=== PATIENT | female | born 1955 | race Caucasian/White ===

== ENCOUNTER 2017-05-02 08:55 | Day surgery (SDC) | payer MEDICARE, BC ==
[2017-05-02] VITALS (7 sets, daily range): BP systolic 124–193; BP diastolic 62–102; PULSE 67–89; RESP 16–20; TEMP 97.4–98.3; O2SAT 95–98
[~2017-05-02] VITALS: Ht 188 cm; Wt 102.3 kg
[2017-05-02] MEDS ORDERED: ACYC400T PO (09:11)
[2017-05-02] MEDS ORDERED: CYTO5TAB3 PO (09:11)
[2017-05-02] MEDS ORDERED: LEVO100T5 PO (09:11)
[2017-05-02] MEDS ORDERED: LIDOCAINE 1%/EPINEPHrine 1:100,000 SOLN 20 ML VIAL ONE (10:24)
[2017-05-02] MEDS ORDERED: MIDAZOLAM HCL 5 MG/5 ML VIAL ONE (10:52)
[2017-05-02] MEDS ORDERED: fentaNYL CITRATE 250 MCG/5 ML AMP ONE (10:52)
--- NOTE | 2017-05-02 13:20 | RADRPT ---
EXAM DATE/TIME: 05/02/2017 11:12 [facility] COMPARISON: No previous studies available for comparison. INDICATIONS : Omental thickening. SEDATION TIME: 40 minutes BIOPSY SITE: abdomen MEDICATION(S): 1.) 3 mg midazolam (Versed) IV 2.) 150 mcg fentanyl (Sublimaze) IV DEVICE(S): 1.) 18 gauge BioPince needle 10cm MEDICAL HISTORY : Omental thickening, bilateral ovarian masses SURGICAL HISTORY : Tubal ligation. Cholecystectomy. ENCOUNTER: Initial ACUITY: 1 day PAIN SCORE: 0/10 LOCATION: anterior A total of one core specimen(s) were obtained and sent to the laboratory for pathologic evaluation. PROCEDURE: 1. CT guided abdomen biopsy. 2. Conscious sedation with continuous EKG and oximetry monitoring. Prior to the procedure informed consent was obtained. Any appropriate prior imaging studies were rev iewed. Using automated exposure control and adjustment of the mA and/or kV according to patient size, radiat ion dose was kept as low as reasonably achievable to obtain optimal diagnostic quality images. The site was prepped in a sterile fashion. Full sterile technique was used, including cap, mask, jamar rile gloves and gown and a large sterile sheet. Hand hygiene and 2% chlorhexidine and/or betadine/al cohol prep was utilized per protocol for cutaneous antisepsis. The skin and subcutaneous tissues wer e infiltrated with local anesthetic solution. With CT guidance the previously identified target was localized. Biopsy was performed using the presc ribed needle as above. Adequate hemostasis was obtained with compression at the puncture site. Follow-up CT scan reveals no hemorrhage. The patient tolerated the procedure well and there were no complications. The patient was returned to the Radiology Outpatient Unit in stable condition. 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 Josué Longoria MD FACR on May 02, 2017 at 13:17 Board Certified Radiologist. This report was verified electronically.
== END 2017-05-02 15:00 | disposition home or self-care (01) ==
LOC: HRAD 08:55 → HRIP 08:59 → HRAD 15:00
PROVIDERS: ATTEND Obstetrics & Gynecology Gynecologic Oncology
DX: C48.1 Malignant neoplasm of specified parts of peritoneum (principal)
CPT/HCPCS: 49180; 77012; 88305; 88333; 88341; 88342; 99152; 99153; J2250; J3010

== ENCOUNTER 2017-05-11 06:20 | Day surgery (SDC) | payer MEDICARE, BC ==
[~2017-05-11] VITALS: Ht 188 cm; Wt 104.5 kg
[2017-05-11] VITALS (7 sets, daily range): BP systolic 129–169; BP diastolic 73–101; PULSE 77–96; RESP 16–20; TEMP 97.6–97.7; O2SAT 93–97
[~2017-05-11 06:20] MED LIST: ACYC400T PO; CYTO5TAB3 PO; LEVO100T5 PO
[2017-05-11] MEDS ORDERED: ceFAZolin 2 GM PREMIX 50 ML - implanted port/tunneled catheter insertion IV SCH (07:30)
[2017-05-11] MEDS ORDERED: VANCOMYCIN 1000 MG/NS 250 ML - implanted port/tunneled catheter IV SCH ×2 (07:30)
[2017-05-11] MEDS ORDERED: CHLORHEXIDINE GLUCONATE 2 % 1 PACK (2 CLOTHS) TOPICAL SCH (07:30)
[2017-05-11] MEDS ORDERED: SODIUM CHLORIDE 0.9% 1000 ML IV SCH (07:30)
[2017-05-11] MEDS ORDERED: POVIDONE IODINE 5% (ANTISEPSIS KIT) 4 APPLICATIONS EACH NARE SCH (07:30)
[2017-05-11] MEDS ORDERED: MIDAZOLAM HCL 5 MG/5 ML VIAL ONE (07:50)
[2017-05-11] MEDS ORDERED: fentaNYL CITRATE 250 MCG/5 ML AMP ONE (07:51)
[2017-05-11] MEDS ORDERED: LIDOCAINE 1%/EPINEPHrine 1:100,000 SOLN 20 ML VIAL ONE (07:55)
[2017-05-11] MEDS ORDERED: MIDAZOLAM HCL 2 MG/2 ML VIAL ONE (09:10)
[2017-05-11] MEDS ORDERED: SODIUM CHLORIDE 0.9% FLUSH 10 ML FLUSH IVF PRN (09:30)
--- NOTE | 2017-05-11 09:30 | PD.RAD ---
Post Procedure Progress Note Pre Procedure Diagnosis: (1) Ovarian cancer Post Procedure Diagnosis: (1) Ovarian cancer Procedure Date: May 11, 2017 Supervising Radiologist: Bala Adkins Proceduralist/Assist: RT Susan(R)() Anesthesia: Local, Conscious Sedation Plan of Activity Patient to Unit: [facility] Patient Condition: Good Additional Comments: tip at [facility] See PACS Report for procedural detail/treatment Bala Adkins MD May 11, 2017 09:30
--- NOTE | 2017-05-11 12:49 | RADRPT ---
EXAM DATE/TIME: 05/11/2017 07:46 [facility] COMPARISON: No previous studies available for comparison. INDICATIONS : Patient with history of bilateral ovarian masses in need of port placement. MEDICAL HISTORY : 1.Bilateral ovarian masses 2.Glaucoma in 2015 3.Thyroid disease in 2010 SURGICAL HISTORY : 1.Cholecystectomy 2.Right shoulder arthroscopy 3.Right knee surgery 4Tubal ligation ENCOUNTER: Initial ACUITY: 2 weeks PAIN SCORE: 0/10 FLUORO TIME: 0.4 minutes IMAGE SERIES: 0 SEDATION TIME: 75 minutes ACCESS: Right internal jugular vein SEDATION: 1.) 6 mg midazolam (Versed) IV 2.) 300 mcg fentanyl (Sublimaze) IV Prophylactic antibiotics were administered with appropriate pre-procedure timing. Vancomycin within 2 hours of procedure, Ancef (or alternative) within 1 hour of procedure. DEVICE: 1. 8 Tamazight single lumen Angiodynamics power port PROCEDURE : 1. Continuous pulse oximetry and EKG monitoring. 2. Intravenous conscious sedation. 3. Ultrasound guidance for venous access. 4. Fluoroscopic guided implantable central venous port placement. The patient was placed supine. The neck was prepped in sterile fashion. Full sterile technique was u sed, including cap, mask, sterile gloves and gown, and a large sterile sheet. Hand hygiene and 2% ch lorhexidine Betadine was utilized per protocol for cutaneous antisepsis with appropriate dry time for site. The skin and subcutaneous tissues were infiltrated with local anesthetic solution. Under direct ultrasound guidance, central venous access was accomplished in the targeted vessel. The ultrasound images depicting access guidance were stored and saved to PACS for permanent record. A s ubcutaneous pocket was created using blunt dissection. The port was introduced to the pocket. The c atheter tubing was fed through a subcutaneous tunnel to the venotomy site. The catheter tubing was c ut to a suitable length and then was introduced through a valved Peel-Away sheath and positioned with catheter tubing tip at the cavo-atrial junction level. The pocket incision was closed with subcutic ular Vicryl suture. Steri-Strips were applied. The port was flushed and locked with heparin solutio n per protocol. Sterile dressing was applied to the site. The patient tolerated the procedure well. Conscious sedation was performed with the prescribed dosages and duration as above in the presence of an independent trained radiology nurse to assist in the monitoring of the patient. EKG and oximetry remained stable throughout the procedure. The patient tolerated the procedure well and there were no complications. The patient was sent to post anesthesia recovery in stable condition. CONCLUSION: Uncomplicated ultrasound and fluoroscopic guided implanted central venous port catheter placement as described in detail above. An 8 Tamazight Power port was placed. Bala Adkins MD on May 11, 2017 at 12:46 Board Certified Radiologist. This report was verified electronically.
== END 2017-05-11 11:55 | disposition home or self-care (01) ==
LOC: HROP 06:20 → HRIP 06:31 → HROP 11:55
PROVIDERS: ATTEND Obstetrics & Gynecology Gynecologic Oncology
DX: Z45.2 Encounter for adjustment and management of vascular access device (principal); C56.9 Malignant neoplasm of unspecified ovary
CPT/HCPCS: 36561; 76937; 77001; 99152; 99153; C1788; J0690; J1642; J2250; J3010; J3370; J7030; J7050

== ENCOUNTER → 2017-08-16 | Outpatient (CLI) | payer MEDICARE, BC ==
[~2017-08-16] MED LIST changes: +ULTR50TA5 PO
--- NOTE | 2017-08-16 11:12 | RADRPT ---
EXAM DATE/TIME: 08/16/2017 10:55 [facility] COMPARISON: No previous studies available for comparison. INDICATIONS : Evaluate for pneumonia, pneumothorax or cumnunicable disease. pre surgery Hysterectomy 08/27/2017 MEDICAL HISTORY : None. SURGICAL HISTORY : Infusaport ENCOUNTER: Initial ACUITY: 1 day PAIN SCORE: 0/10 LOCATION: chest FINDINGS: PA and lateral views of the chest demonstrate the lungs to be symmetrically aerated without evidence of mass, infiltrate or effusion. Right-sided [id number]-[id number] catheter with tip in the SVC. The cardiom ediastinal contours are unremarkable. Osseous structures are intact. CONCLUSION: No acute disease. Kristofer Pisano MD on August 16, 2017 at 11:10 Board Certified Radiologist. This report was verified electronically.
== END ==
LOC: CPRE 10:01
PROVIDERS: ATTEND Obstetrics & Gynecology Gynecologic Oncology
DX: Z01.811 Encounter for preprocedural respiratory examination (principal); C56.9 Malignant neoplasm of unspecified ovary
CPT/HCPCS: 71020

== ENCOUNTER 2017-08-27 05:31 | Inpatient (IN) | payer MEDICARE, BC ==
[~2017-08-27] VITALS: Ht 188 cm; Wt 103.7 kg
[~2017-08-27 05:31] MED LIST changes: -ULTR50TA5 PO
[2017-08-27] MEDS ORDERED: METOPROLOL TARTRATE 25 MG TAB PO PRN (06:00)
[2017-08-27] MEDS ORDERED: HEPARIN SODIUM - SQ 10,000 UNITS/ML VIAL SQ PRN (06:00)
[2017-08-27] MEDS ORDERED: CHLORHEXIDINE GLUCONATE 2 % 1 PACK (2 CLOTHS) TOPICAL PRN (06:00)
[2017-08-27] MEDS ORDERED: LACTATED RINGER'S 1000 ML IV PRN (06:00)
[2017-08-27] MEDS ORDERED: SODIUM CHLORID 0.9% 500 ML IV PRN (06:00)
[2017-08-27] MEDS ORDERED: SODIUM CHLORIDE FLUSH PRN IV FLUSH (06:00)
[2017-08-27] MEDS ORDERED: INSULIN HUMAN REGULAR 1,000 UNITS/10 ML VIAL SQ PRN (06:00)
[2017-08-27] MEDS ORDERED: POVIDONE IODINE 5% (ANTISEPSIS KIT) 4 APPLICATIONS EACH NARE PRN (06:00)
[2017-08-27] MEDS ORDERED: ACETAMINOPHEN 1000 MG/100 ML 100 ML IV ONE (06:39)
[2017-08-27] MEDS ORDERED: ARTIFICIAL TEARS OPTH OINT 3.5 APPLIC/3.5 GM TUBO ONE (06:40)
[2017-08-27] MEDS ORDERED: SUGAMMADEX SODIUM 200 MG/2 ML VIAL IV PUSH ONE ×2 (06:40)
[2017-08-27] MEDS: ceFAZolin 2 GM PREMIX 50 ML IV SCH (07:09)
[2017-08-27] MEDS ORDERED: SODIUM CHLORIDE FLUSH BID IV FLUSH SCH (09:00)
[2017-08-27] MEDS ORDERED: ceFAZolin INJ 1,000 MG VIAL IV ONE (11:35)
[2017-08-27] MEDS ORDERED: LORazepam 0.5 MG TAB PO PRN (12:00)
[2017-08-27] MEDS ORDERED: SODIUM CHLORIDE 0.9% FLUSH 10 ML FLUSH IV FLUSH PRN (12:00)
[2017-08-27] MEDS: D5-1/2 NS + KCL 20 MEQ INJ 1,000 ML IV SCH ×2 (12:00→22:26)
[2017-08-27] MEDS ORDERED: ONDANSETRON HCL 4 MG/2 ML VIAL IVP PRN (12:00)
[2017-08-27] MEDS ORDERED: METHYLENE BLUE 10 MG/ML VIAL IV ONE (13:00)
[2017-08-27] MEDS: LIOTHYRONINE SODIUM 5 MCG TAB PO SCH ×2 (14:00→18:00)
[2017-08-27] MEDS ORDERED: *morphine SULFATE 8 MG/ML PERIprocedure ONLY ONE (14:05)
--- NOTE | 2017-08-27 15:31 | PD.ONC.PN ---
Subjective Subjective Remarks post op note: Pt is resting, seen in PACU awaiting bed no complaints pain controlled denies n/v eating ice chips Objective Data Date Time Temp Pulse Resp B/P (MAP) Pulse Ox O2 Delivery O2 Flow Rate FiO2 08/27/17 15:00 97.7 93 16 134/72 (92) 97 Nasal Cannula 2 08/27/17 14:00 79 16 123/71 (88) 96 Nasal Cannula 2 08/27/17 13:00 80 16 124/64 (84) 96 Nasal Cannula 2 08/27/17 12:45 93 16 125/65 (85) 95 08/27/17 12:30 67 16 114/56 (75) 96 Simple Mask 6 08/27/17 12:15 73 16 113/56 (75) 95 Simple Mask 6 08/27/17 12:09 97.7 84 20 126/63 (84) 94 Simple Mask 6 08/27/17 06:17 97.1 87 20 163/99 (120) 97 08/27/17 08/27/17 08/27/17 06:59 14:59 22:59 Intake Total 1400 ml Output Total 400 ml Balance 1000 ml Administered Medications Medications (Trade) Dose Ordered Sig/Kristen Route PRN Reason Start Time Stop Time Status Last Admin Dose Admin Lactated Ringer's 1,000 ml @ 30 mls/hr Q24H PRN IV SEE LABEL COMMENTS 08/27/17 06:00 08/30/17 05:59 08/27/17 06:15 Povidone Iodine (Betadine 5% Antisepsis Kit) 1 applic [employer] PRN EACH NARE SEE LABEL COMMENTS 08/27/17 06:00 08/30/17 05:59 08/27/17 06:47 Chlorhexidine Gluconate (Chlorhexidine 2% Cloth) 3 pack [employer] PRN TOPICAL SEE LABEL COMMENTS 08/27/17 06:00 08/30/17 05:59 08/27/17 06:00 Heparin Sodium (Porcine) (Heparin Inj) 5,000 units [employer] PRN SQ GIVE PRE-OP [employer]UCER TO OR 08/27/17 06:00 08/28/17 05:59 08/27/17 06:37 Cefazolin Sodium/ Dextrose 50 ml @ 100 mls/hr [employer] IV 08/27/17 06:00 08/30/17 05:59 08/27/17 07:09 Potassium Chloride/Dextrose/ Sod Cl 1,000 ml @ 100 mls/hr Q10H IV 08/27/17 12:00 08/27/17 12:00 Objective Remarks GENERAL: Well-nourished, well-developed patient. SKIN: Warm and dry. HEAD: Normocephalic. EYES: No scleral icterus. No injection or drainage. NECK: Supple CARDIOVASCULAR: Regular rate and rhythm without murmurs. RESPIRATORY: Breath sounds equal bilaterally. No accessory muscle use. GASTROINTESTINAL: Abdomen soft, non-tender, nondistended. SS are c/d/i MUSCULOSKELETAL: Adequate muscle tone. NEUROLOGICAL: No obvious focal deficit. Awake, alert, and oriented x3. PSYCHIATRIC: Appropriate mood and affect; insight and judgment normal. Assessment/Plan Problem List: (1) Ovarian cancer ICD Codes: C56.9 - Malignant neoplasm of unspecified ovary Status: Acute Plan: s/p RA lap hyst with BSO and omentectomy post op orders in chart ADAT can get OOB to chair pain meds per EMR anticipate d/c cline in morning and discharge home in next 24 hours Que Silva Aug 27, 2017 15:31
[2017-08-27] MEDS: traMADol HCL 50 MG TAB PO PRN (16:21)
[2017-08-27 16:24] VITALS: BP 147/82; PULSE 95; RESP 21; O2SAT 94
[2017-08-27] MEDS: KETOROLAC TROMETHAMINE 30 MG/ML (IVP) VIAL IVP PRN (19:28)
[2017-08-27 20:02] VITALS: BP 147/88; PULSE 85; RESP 16; TEMP 97.9; O2SAT 96
[2017-08-27] MEDS ORDERED: SODIUM CHLORIDE 0.9% FLUSH 10 ML FLUSH IV FLUSH SCH (21:00)
[2017-08-28] MEDS: KETOROLAC TROMETHAMINE 30 MG/ML (IVP) VIAL IVP PRN (00:07)
[2017-08-28] MEDS: traMADol HCL 50 MG TAB PO PRN (00:08)
[2017-08-28 00:16] VITALS: BP 148/86; PULSE 83; RESP 16; TEMP 98.4; O2SAT 97
[2017-08-28 04:35] VITALS: O2SAT 96
[2017-08-28 05:29] VITALS: BP 144/88; PULSE 73; RESP 16; TEMP 98.5; O2SAT 95
[2017-08-28] MEDS ORDERED: LEVOTHYROXINE SODIUM 100 MCG TAB PO SCH (06:00)
[2017-08-28 07:03] LABS: AUTOMATED NEUTROPHIL # 5.2 TH/MM3 (1.8-7.7); BASOPHIL % 0.3 % (0.0-2.0); EOSINOPHIL % 0.3 % (0.0-4.0); HEMATOCRIT 28.3 % (35.0-46.0); HEMO FLAGS DIFF FINAL; LYMPH % 19.8 % (9.0-44.0); LYMPHOCYTE # 1.5 TH/MM3 (1.0-4.8); MEAN CELL VOLUME 99.5 FL (80.0-100.0); MEAN CORPUSCULAR HEMOGLOBIN 34.8 PG (27.0-34.0); NEUT % 69.6 % (16.0-70.0); PLATELET COUNT 133 TH/MM3 (150-450); RED BLOOD COUNT 2.84 MIL/MM3 (4.00-5.30); RED CELL DISTRIBUTION WIDTH 15.9 % (11.6-17.2); WHITE BLOOD COUNT 7.5 TH/MM3 (4.0-11.0)
[2017-08-28] MEDS ORDERED: ULTR50TA5 PO (07:21)
[2017-08-28 07:33] LABS: BICARBONATE 26.9 MEQ/L (21.0-32.0); POTASSIUM 3.3 MEQ/L (3.5-5.1)
[2017-08-28 07:46] LABS: CALCIUM-PROTEIN CORRECTED 8.1 MG/DL (8.5-10.1)
[2017-08-28 08:00] VITALS: BP 160/88; PULSE 77; RESP 18; TEMP 98.2; O2SAT 94
[2017-08-28] MEDS: LIOTHYRONINE SODIUM 5 MCG TAB PO SCH (10:09)
--- NOTE | 2017-08-28 10:34 | MP ---
cc: CANDIE DEWITT M.D. ALLEY JESSICA MD, DAVID K. M.D. DATE OF SURGERY 08/27/2017 PREOPERATIVE DIAGNOSES 1. Stage III-C ovarian cancer. 2. Status post neoadjuvant Taxol and carboplatin chemotherapy. POSTOPERATIVE DIAGNOSES 1. Stage III-C ovarian cancer. 2. Status post neoadjuvant Taxol and carboplatin chemotherapy. 3. Extensive intraperitoneal adhesions. 4. Moderate right hydronephrosis. PROCEDURE Robotic-assisted laparoscopic hysterectomy, bilateral salpingo-oophorectomy and right ureterolysis, omentectomy, extensive lysis of adhesions. SURGEON Alley Jessica MD NURSE INFORMATICS EDUCATOR [place] special event assistant. ANESTHESIA General endotracheal anesthesia. ESTIMATED BLOOD LOSS 300 cc. IV FLUIDS 1400 cc. URINE OUTPUT 100 cc. HISTORY This is a 61-year-old female with biopsy-proven papillary serous adenocarcinoma with disease in the abdomen, bilateral ovarian masses, an elevated CA-125 greater than 2000. These findings system Stage III-C ovarian cancer. She was counseled, underwent neoadjuvant Taxol, carboplatin chemotherapy x 4 cycles with a rapid and normalization of her CA-125, marked clinical improvement and significant improvement on clinical exam. She has been counseled regarding the potential value of surgical intervention. She favors minimal evasive techniques if possible and she presents now. She is seen again in the preop holding area where these findings are again reviewed and the plan of care is discussed. Questions were asked and answered. She expressed good understanding. FINDINGS In the peritoneal cavity. There had been a tremendous response to chemotherapy. The omentum had what looked to be like small foci of tumor but overall looked relatively normal. There were adhesions, minimal in the abdomen, extensive in the pelvis that were consistent with areas of prior tumor that had responded to chemotherapy. Both ovaries were enlarged and fixed densely, partially retroperitonealized against the pelvic sidewall with some obliteration of the cul-de-sac. There was moderate dilation of the right ureter as the overlying ovary and tumor caused compression to the distal ureter. The uterus grossly appeared normal. Amazingly there were actually no visible peritoneal implants. The liver and diaphragm edges were smooth. The large and small bowel adjacent mesentery were inspected and no peritoneal implants could be detected. Furthermore, there was no appreciably enlarged lymph nodes in the pelvis or para-aortic region detectable on inspection or palpation. At the end of the case essentially all grossly visible abnormalities had been resected and there was sabianism of normal anatomy. No grossly detectable tumor, no remaining adhesions at the completion of the case. MODIFIER/STATEMENT OF COMPLEXITY The complexity of this case was increased and significant amount of time was required due to the extensive pelvic adhesions in order to gain surgical access, restore normal anatomy and accomplish surgical objectives and a modifier should be applied accordingly. PROCEDURE She was taken to the operating room, placed in dorsal lithotomy position after general endotracheal anesthesia was administered. Time-out was undertaken. She was identified by sight recognition and hospital ID brakiran and the proposed procedure was reviewed and confirmed. She was carefully positioned in padded Rad stirrups. Her arms were padded and secured to her sides. She was further secured to the operating table with eggcrate padding and tape in across-chest [id number] fashion. All sites were noted to be properly aligned with no malalignments or pressure points. She was prepped and draped in sterile fashion, placed in high lithotomy position, cervix grasped, the uterine cavity sounded, the cervix dilated and a standard V-Care manipulator inserted and secured in the usual fashion. Sultana catheter was placed in the bladder. She was returned to low lithotomy position. A change of sterile gloves was undertaken, we completed draping in anticipation of laparoscopy. After confirming that an orogastric tube was in the stomach on suction and with manual elevation of the abdominal wall, a 5-mm cannula was introduced into the left upper quadrant and atraumatic entry was confirmed. Carbon dioxide gas was insufflated and now under laparoscopic visualization a 12-mm cannula was placed in the midline above the umbilicus, an 8-mm cannulas was placed in the right upper quadrant and left lateral quadrant and the original 5-mm exchanged for a 8-mm cannula. She was placed in Trendelenburg position. The anatomy was surveyed with the findings as described above. Sharp dissection was used to take down some filmy adhesions in the abdomen. Three Ray-Minh sponges were placed around the root of the small bowel mesentery. The robotic system was brought into the operative field, attached in the usual fashion. Monopolar scissors, fenestrated bipolar forceps and ProGrasp manipulators were placed in arms #1, 2 and 3 respectively and I took my place at the surgeon's console. Scissors were exchanged for graspers in arm #1 as the infracolic omentum was placed on stretch and fixed with a grasper with the distal end toward the pelvis to help isolate its attachment and anatomical orientation to the transverse colon. Starting near the hepatic flexure, nonvascular attachments were taken down with sharp dissection. The vascular attachments were taken down with bipolar cautery as they are isolated, cauterized and transected. This dissection of the omentum was carried across the transverse colon toward the splenic flexure. There was some merging of the gastrocolic ligament with the infracolic omentum and part of the gastrocolic ligament was included in the dissection were similarly vascular pedicles were isolated, cauterized and transected. Nonvascular attachments were taken down with sharp dissection and this was continued toward the splenic flexure until the entire infracolic omentum with some gastrocolic ligament had been transected. This specimen was left in the abdomen for later retrieval. Attention was directed toward the pelvis. Extensive time was spent sharply dissecting adhesions in the cul-de-sac, freeing the obliteration of the cul-de-sac and freeing the ovaries, attachments and partial retroperitoneal dissection in the pelvis; this dissection was started on the right side. The right round ligament was isolated, cauterized, transected. The anterior and posterior leaves of the broad ligament were opened. The right ureter was identified on the medial leaf of the broad ligament. Moderate dilation was noted with dense adherence and dense adhesions distally from the ovarian tumor and extrinsic compression. Accordingly the course of the ureter was isolated throughout the pelvis with sharp dissection and blunt dissection to free the ureter from its attachments to the posterior lateral aspects of the ovarian mass and this was carried out distally through the pelvis until the ureter was free from adjacent tissue after complete ureterolysis. The gonadal vessels were isolated. The intervening peritoneum was opened. The infundibulopelvic ligament was isolated to the level of pelvic brim where it was cauterized securely and transected. Posterior peritoneum further opened with sharp dissection. The distal lysis of adhesion was carried out and the vesicouterine peritoneum was dissected off the lower uterine segment and cervix on the right side. The uterine vessels were skeletonized and cauterized. Attention was directed toward the left side. Extensive adhesions were carried out to mobilize the colon which was overlying the left sidewall structures and additional adhesions were lysed in the cul-de-sac to help mobilize the ovary and fallopian tube. The left round ligament was isolated, cauterized and transected. The retroperitoneal dissection was carried out further, allowed identification of the ureter. The infundibulopelvic ligament was isolated. The intervening peritoneum was opened. The infundibulopelvic ligament was isolated to the level of the pelvic brim where it was cauterized and transected. Additional sharp dissection was required to mobilize the left tube and ovary to lift it to where it was free except for its attachments anatomically to the utero-ovarian ligament. The vesicouterine peritoneum was dissected off the left lower uterine segment and cervix and the left posterior peritoneum was completed and the left uterine vessels were skeletonized and cauterized. Now the left uterine vessels were transected. The cardinal, paracervical and uterosacral ligaments were isolated, cauterized and transected in stepwise fashion freeing the attachments along the left side of the uterus and cervix. Attention was redirected toward the right side where the right uterine vessels were now transected. The cardinal, paracervical and uterosacral ligaments were isolated, cauterized and transected in a stepwise fashion freeing the attachments along the right side of the uterus and cervix. Circumferential colpotomy was performed the cervix from the upper vagina. The specimen was withdrawn transvaginally which included uterus, cervix, tubes and ovaries and any tumor that was involved in the structures and a pneumooccluder balloon was placed in the vagina to maintain pneumoperitoneum. The large omental specimen was delivered transvaginally by grasping it with a ring forceps and it was delivered in its entirety transvaginally and then each of the three Ray-Minh sponges were delivered with ring forceps, removed transvaginally. Inspection of the abdomen and pelvis as described above revealed no residual grossly detectable tumor. Adhesions had been completely lysed. It was felt that all reasonable surgical objectives had been completed. Instruments #1 and 3 were exchanged for needle drivers as a 0 Vicryl suture was introduced. The vaginal cuff was closed starting at the left corner, full-thickness closure incorporating the posterior peritoneum, the uterosacral ligaments tied via instrument tie. The suture was held on traction as a running continuous full-thickness closure was carried across the vaginal apex to the contralateral corner where it was similarly fixed, secured, tied via instrument tie. The needle was cut and removed. The integrity of the bladder was confirmed by filling the bladder with saline dyed with methylene blue. It distended nicely under pressure. There were no areas where the bladder was thin, no visible blue, certainly no extravasation of dye. There was a good margin between the bladder edge and the vaginal cuff suture line, good peristalsis of ureters bilaterally and the bladder was drained. The pelvis was thoroughly irrigated, small bleeders rendered hemostatic with bipolar cautery. Hemostatic Matthew was placed throughout the dissection bed in the pelvis and lateral pelvic sidewalls. It was felt that all reasonable surgical objectives had been completed. Robotic instruments were removed. The robotic system was disengaged from the operative field. I reentered bedside under sterile condition. The 12-mm fascial defect was closed with 0 Vicryl sutures using a needle pass apparatus. They were tied securely which rendered the fascia completely airtight and hemostatic. The remaining cannulas were withdrawn. Carbon dioxide gas was removed. Preliminary counts were correct. There were no remaining foreign objects in the peritoneal cavity and 3-0 Vicryl subcutaneous and 3-0 Vicryl subcuticular were used to close these incisions with Steri-Strips. She was returned to dorsal lithotomy position. Pelvic exam confirmed that the vaginal cuff was well-supported. There were no remaining foreign objects in the vagina. No lacerations. Good hemostasis. Final counts were correct. She was returned to dorsal supine position and was pending reversal of anesthesia when I left the operating room to precede her to the Post-Anesthesia Care Unit. MD ALISON Engle/JASSI /7:51 AM /10:02 AM
--- NOTE | 2017-08-28 21:37 | MD ---
cc: JUAN ALBERTO TEE M.D., KELLY L. MD CORTEZ, STEPHEN J. M.D. ADMISSION DATE: 08/27/2017 DISCHARGE DATE: 08/28/2017 PROCEDURE 08/27/2017 robotic-assisted laparoscopic hysterectomy, bilateral salpingo-oophorectomy, right ureteral lysis, omentectomy, extensive lysis of adhesions. DIAGNOSIS Ovarian cancer status post neoadjuvant chemotherapy. HOSPITAL COURSE She has done well in the early postoperative period. Hemodynamically stable, tolerating oral intake. Sultana catheter removed, pending voiding. OBJECTIVE Ins and outs 3198/1400. Labs this morning H&H 9.9/28.3. Electrolytes pending at the time of this dictation. PHYSICAL EXAMINATION VITAL SIGNS: Afebrile, pulse 73-83, respirations 16, blood pressure 144-148/86-88. O2 saturations greater than or equal to 96% while awake. GENERAL: Alert and oriented x3. LUNGS: Clear except for mild basilar rales. CARDIOVASCULAR: Regular rate and rhythm. ABDOMEN: Soft. Incisions clean and dry. LEARN TO SWIM INSTRUCTOR: No bleeding. ASSESSMENT Postop day #1 doing well in early postoperative period. Preliminary findings, preliminary pathology and steps taken at surgery were reviewed. Activities, restrictions discussed. Questions were asked and answered. She expressed good understanding. PLAN Therefore anticipate discharge to home. She is to resume her prior medications. She will have a prescription for Ultram for pain. She is to contact our office should she have any questions or problems prior to scheduling followup appointment in 2 weeks. MD ALISON Engle/WARREN /7:22 AM /9:23 PM
== END 2017-08-28 11:39 | disposition home or self-care (01) | DRG 737 ==
LOC: HSDI 05:31 → HCIS 15:35
PROVIDERS: ADMIT Obstetrics & Gynecology Gynecologic Oncology; ATTEND Obstetrics & Gynecology Gynecologic Oncology
PROC: 0UT2FZZ Resection of Bilateral Ovaries, Via Natural or Artificial Opening With Percutaneous Endoscopic Assistance (ICD-10-PCS; 2017-08-27)
PROC: 0UT7FZZ Resection of Bilateral Fallopian Tubes, Via Natural or Artificial Opening With Percutaneous Endoscopic Assistance (ICD-10-PCS; 2017-08-27)
PROC: 0TN64ZZ Release Right Ureter, Percutaneous Endoscopic Approach (ICD-10-PCS; 2017-08-27)
PROC: 0DBU4ZZ Excision of Omentum, Percutaneous Endoscopic Approach (ICD-10-PCS; 2017-08-27)
PROC: 0DNE4ZZ Release Large Intestine, Percutaneous Endoscopic Approach (ICD-10-PCS; 2017-08-27)
PROC: 8E0W4CZ Robotic Assisted Procedure of Trunk Region, Percutaneous Endoscopic Approach (ICD-10-PCS; 2017-08-27)
PROC: 0UT9FZZ Resection of Uterus, Via Natural or Artificial Opening With Percutaneous Endoscopic Assistance (ICD-10-PCS; principal; 2017-08-27 07:13)
DX: C56.1 Malignant neoplasm of right ovary (principal); N13.30 Unspecified hydronephrosis; C56.2 Malignant neoplasm of left ovary; N73.6 Female pelvic peritoneal adhesions (postinfective); Z92.21 Personal history of antineoplastic chemotherapy
CPT/HCPCS: 80048; 84155; 85025; 86850; 86900; 86901; 88305; 88307; 94150; J0131; J0690; J1644; J1885; J2270; J3480; J7120

== ENCOUNTER 2017-11-10 16:35 | Observation (INO) | payer MEDICARE, BC ==
[~2017-11-10] VITALS: Ht 188 cm; Wt 102.3 kg
[~2017-11-10 16:35] MED LIST changes: -CYTO5TAB3 PO; +LIOT5 PO; +TRAM50 PO
--- NOTE | 2017-11-10 16:50 | PD ---
HPI Chief Complaint: Fever Time Seen by Provider: 16:46 Travel History International Travel<30 days: No Contact w/Intl Traveler<30days: No Traveled to known affect area: No History of Present Illness HPI 61-year-old female came to the emergency room with history of cough and congestion for past couple days. Today she started noticing that she was running a fever. MAXIMUM TEMPERATURE was 102.5. Patient has history of ovarian cancer and because of the chemotherapy she has been advised that a temperature 100.5 she should go to the emergency room and hence she came here. Temperature in triage was 99.5. Patient is slightly tachycardic. She is awake and answering questions appropriately. No history of nausea vomiting. No history of diarrhea. PFSH Past Medical History Narrative Medical List of her past medical, surgical, social and family history is reviewed from the nursing note. Cancer: Yes Cardiovascular Problems: No Diabetes: No Endocrine: No Genitourinary: No Hepatitis: No Hiatal Hernia: No Immune Disorder: No Musculoskeletal: No Neurologic: No Psychiatric: No Reproductive: Yes Respiratory: No Thyroid Disease: Yes Past Surgical History Abdominal Surgery: Yes (gallbladder) AICD: No Body Medical Devices: port r side chest Cardiac Surgery: No Ear Surgery: No Endocrine Surgery: No Eye Surgery: Yes (RADIAL KERITOTOMY) Genitourinary Surgery: No Gynecologic Surgery: Yes (TUBES TIED) Joint Replacement: No Oral Surgery: No Pacemaker: No Thoracic Surgery: No Social History Tobacco Use: No Substance Use: No Allergies-Medications (Allergen,Severity, Reaction): Coded Allergies: acetaminophen (Verified Allergy, Intermediate, Itching, 11/10/17) hydrocodone (Verified Allergy, Intermediate, Itching, 11/10/17) raloxifene (Verified Allergy, Intermediate, Edema, 11/10/17) SEVERE LOWER LEG ANKLE SWELLING Sulfa (Sulfonamide Antibiotics) (Verified Allergy, Unknown, Hives, ) BLOTCHING ITCHING Comments List of her allergies reviewed from the nursing note. Reported Meds & Prescriptions Reported Meds & Active Scripts Active Reported Cytomel (Liothyronine Sodium) 5 Mcg Tablet 1 Tab PO TID Acyclovir 400 Mg Tab 400 Mg PO BID Levothyroxine (Levothyroxine Sodium) 100 Mcg Tab 100 Mcg PO DAILY Narrative Medication List of her home medications reviewed from the nursing note. Review of Systems Except as stated in HPI: all other systems reviewed are Neg General / Constitutional: Positive: Fever Respiratory: Positive: Cough Physical Exam Narrative GENERAL: Awake, alert, moderate distress SKIN: Focused skin assessment warm/dry. HEAD: Atraumatic. Normocephalic. EYES: Pupils equal and round. No scleral icterus. No injection or drainage. ENT: No nasal bleeding or discharge. Mucous membranes pink and moist. NECK: Trachea midline. No JVD. CARDIOVASCULAR: Regular rate and rhythm. No murmur appreciated. RESPIRATORY: No accessory muscle use. Clear to auscultation. Breath sounds equal bilaterally. GASTROINTESTINAL: Abdomen soft, non-tender, nondistended. Hepatic and splenic margins not palpable. MUSCULOSKELETAL: No obvious deformities. No clubbing. No cyanosis. No edema. NEUROLOGICAL: Awake and alert. No obvious cranial nerve deficits. Motor grossly within normal limits. Normal speech. PSYCHIATRIC: Appropriate mood and affect; insight and judgment normal. Data Data Last Documented VS Orders Orders Sepsis Workup Initiated (11/10/17 ) Complete Blood Count With Diff (11/10/17 17:02) Comprehensive Metabolic Panel (11/10/17 17:02) Lactic Acid Sepsis Protocol (11/10/17 17:02) Urinalysis - C+S If Indicated (11/10/17 17:02) Blood Culture (11/10/17 17:02) Chest, Single Ap (11/10/17 17:02) Blood Glucose (11/10/17 17:02) Ecg Monitoring (11/10/17 17:02) Iv Access Insert/Monitor (11/10/17 17:02) Oximetry (11/10/17 17:02) Oxygen Administration (11/10/17 17:02) Sodium Chlor 0.9% 1000 Ml Inj (Ns 1000 M (11/10/17 17:15) Sodium Chlor 0.9% 1000 Ml Inj (Ns 1000 M (11/10/17 17:15) Potassium Chloride (Kcl) (11/10/17 18:15) Influenzae A/B Antigen (11/10/17 18:04) Cefepime Inj (Maxipime Inj) (11/10/17 18:15) Oseltamivir (Tamiflu) (11/10/17 18:45) Place In Observation (11/10/17 ) Vital Signs (Adult) Q4H (11/10/17 18:35) Activity Oob With Assistance (11/10/17 18:35) Intake + Output SHAUN.QSHIFT (11/10/17 18:35) Diet Heart Healthy (11/10/17 Dinner) Sodium Chlor 0.9% 1000 Ml Inj (Ns 1000 M (11/10/17 18:35) Sodium Chloride 0.9% Flush (Ns Flush) (11/10/17 18:45) Sodium Chloride 0.9% Flush (Ns Flush) (11/10/17 21:00) Acetaminophen (Tylenol) (11/10/17 18:45) Ondansetron Inj (Zofran Inj) (11/10/17 18:45) Basic Metabolic Panel (Bmp) (11/11/17 06:00) Complete Blood Count With Diff (11/11/17 06:00) Resp Oxygen Kevin C Titrat 1-4 L (11/10/17 ) Pt Request For Service (11/10/17 18:35) Case Management Consult (11/10/17 18:35) Scd Bilateral/Knee High SHAUN.BID (11/10/17 18:35) Link Bilateral/Knee High SHAUN.QSHIFT (11/10/17 18:35) Naloxone Inj (Narcan Inj) (11/10/17 18:45) Docusate Sodium-Senna (Nora-Colace) (11/10/17 21:00) Magnesium Hydroxide Liq (Milk Of Magnesi (11/10/17 18:45) Sennosides (Senokot) (11/10/17 18:45) Bisacodyl Supp (Dulcolax Supp) (11/10/17 18:45) Lactulose Liq (Lactulose Liq) (11/10/17 18:45) Levothyroxine (Synthroid) (11/11/17 06:00) Liothyronine (Cytomel) (11/11/17 09:00) Tramadol (Ultram) (11/10/17 18:45) Admit Order (Ed Use Only) (11/10/17 18:38) Acetaminophen (Tylenol) (11/10/17 18:45) Oseltamivir (Tamiflu) (11/11/17 09:00) Labs Laboratory Tests Test 11/10/17 17:20 11/10/17 17:25 White Blood Count 9.9 TH/MM3 Red Blood Count 3.45 MIL/MM3 Hemoglobin 10.6 GM/DL Hematocrit 32.5 % Mean Corpuscular Volume 94.4 FL Mean Corpuscular Hemoglobin 30.9 PG Mean Corpuscular Hemoglobin Concent 32.7 % Red Cell Distribution Width 14.8 % Platelet Count 107 TH/MM3 Mean Platelet Volume 7.9 FL Neutrophils (%) (Auto) 79.6 % Lymphocytes (%) (Auto) 11.0 % Monocytes (%) (Auto) 9.0 % Eosinophils (%) (Auto) 0.2 % Basophils (%) (Auto) 0.2 % Neutrophils # (Auto) 7.9 TH/MM3 Lymphocytes # (Auto) 1.1 TH/MM3 Monocytes # (Auto) 0.9 TH/MM3 Eosinophils # (Auto) 0.0 TH/MM3 Basophils # (Auto) 0.0 TH/MM3 CBC Comment DIFF FINAL Differential Comment Blood Urea Nitrogen 9 MG/DL Creatinine 0.67 MG/DL Random Glucose 97 MG/DL Total Protein 7.6 GM/DL Albumin 3.3 GM/DL Calcium Level 8.4 MG/DL Alkaline Phosphatase 127 U/L Aspartate Amino Transf (AST/SGOT) 23 U/L Alanine Aminotransferase (ALT/SGPT) 25 U/L Total Bilirubin 0.4 MG/DL Sodium Level 135 MEQ/L Potassium Level 3.3 MEQ/L Chloride Level 99 MEQ/L Carbon Dioxide Level 27.4 MEQ/L Anion Gap 9 MEQ/L Estimat Glomerular Filtration Rate 90 ML/MIN Lactic Acid Level 1.0 mmol/L Urine Collection Type CATH Urine Color YELLOW Urine Turbidity CLEAR Urine pH 6.0 Urine Specific [place] 1.010 Urine Protein NEG mg/dL Urine Glucose (UA) NEG mg/dL Urine Ketones NEG mg/dL Urine Occult Blood TRACE Urine Nitrite NEG Urine Bilirubin NEG Urine Leukocyte Esterase NEG Urine RBC 0-3 /hpf Urine WBC 0-2 /hpf Microscopic Urinalysis Comment CULT NOT INDICATED MDM Medical Decision Making Medical Screen Exam Complete: Yes Emergency Medical Condition: Yes Medical Record Reviewed: Yes Differential Diagnosis Pneumonia, sepsis, viral illness Narrative Course 6:05 PM patient's white blood cell count is good and she is not neutropenic. She has slight, cytopenia but that's about it. Potassium is slightly low and I have ordered for by mouth replacement. Awaiting for the lipase and influenza test. Chest x-rays negative. Patient was given IV fluid bolus 2 L. 6:13 PM I just discussed the case with Dr. Allen who is covering for patient' s oncologist Dr. Matta. I discussed the findings with her and she recommended admission and a dose of cefepime. She'll consult on the patient. Awaiting for the hospitalist call back. 6:37 PM patient's influenza test came back positive for influenza a. I've given her dose of Tamiflu. Procedures EKG Prior to Arrival: No Physician Communication Physician Communication Dr. Allen Diagnosis Primary Impression: Fever Qualified Codes: R50.9 - Fever, unspecified Additional Impressions: History of chemotherapy Influenza A Admitting Information Admitting Physician Requests: Observation Scripts Oseltamivir (Tamiflu) 75 Mg Cap 75 MG PO BID for flu, #10 CAP Prov: Lexy Polo MD 11/11/17 Yolis Bran MD Nov 10, 2017 16:50
[2017-11-10 17:01] VITALS: BP 148/80; PULSE 110; RESP 16; TEMP 99.9; O2SAT 96
[2017-11-10] MEDS ORDERED: SODIUM CHLOR 0.9% 1000 ML INJ 1,000 ML IV ONE ×2 (17:15)
--- NOTE | 2017-11-10 17:21 | RADRPT ---
EXAM DATE/TIME: 11/10/2017 17:11 [facility] COMPARISON: CHEST PA & LAT, August 16, 2017, 10:55. INDICATIONS : Fever, cough, congestion. MEDICAL HISTORY : Carcinoma, ovarian. SURGICAL HISTORY : Cholecystectomy. Port placement. ENCOUNTER: Initial ACUITY: 2 days PAIN SCORE: 0/10 LOCATION: Bilateral chest FINDINGS: The lungs are clear without infiltrate, nodule, or mass. There is no appreciable pleural effusion fo r technique. Heart and mediastinum are unremarkable. Right IJ [id number] is present with tip over lapping the expected region of the SVC. CONCLUSION: No acute cardiopulmonary disease. Matthew Ruiz MD on November 10, 2017 at 17:19 Board Certified Radiologist. This report was verified electronically.
[2017-11-10 17:39] LABS: AUTOMATED NEUTROPHIL # 7.9 TH/MM3 (1.8-7.7); BASOPHIL % 0.2 % (0.0-2.0); EOSINOPHIL % 0.2 % (0.0-4.0); HEMATOCRIT 32.5 % (35.0-46.0); HEMOGLOBIN 10.6 GM/DL (11.6-15.3); LYMPHOCYTE # 1.1 TH/MM3 (1.0-4.8); MEAN CELL VOLUME 94.4 FL (80.0-100.0); MEAN CORPUSCULAR HEMOGLOBIN 30.9 PG (27.0-34.0); MEAN CORPUSCULAR HGB CONC 32.7 % (32.0-36.0); MEAN PLATELET VOLUME 7.9 FL (7.0-11.0); MONOCYTE # 0.9 TH/MM3 (0-0.9); NEUT % 79.6 % (16.0-70.0); PLATELET COUNT 107 TH/MM3 (150-450); RED BLOOD COUNT 3.45 MIL/MM3 (4.00-5.30); RED CELL DISTRIBUTION WIDTH 14.8 % (11.6-17.2); WHITE BLOOD COUNT 9.9 TH/MM3 (4.0-11.0)
[2017-11-10 17:46] VITALS: O2SAT 97
[2017-11-10 17:52] LABS: CHLORIDE 99 MEQ/L (98-107); SODIUM (NA) 135 MEQ/L (136-145)
[2017-11-10 17:55] LABS: ALBUMIN 3.3 GM/DL (3.4-5.0); BICARBONATE 27.4 MEQ/L (21.0-32.0); BLOOD UREA NITROGEN 9 MG/DL (7-18); CALCIUM 8.4 MG/DL (8.5-10.1); GLUCOSE,RANDOM 97 MG/DL (74-106)
[2017-11-10 17:58] LABS: ALT (GPT) 25 U/L (10-53)
[2017-11-10 17:59] LABS: AST (GOT) 23 U/L (15-37); CREATININE 0.67 MG/DL (0.50-1.00); GLOMERULAR FILTRATION RATE 90 ML/MIN (>89)
[2017-11-10 18:00] LABS: TOTAL BILIRUBIN ADULT 0.4 MG/DL (0.2-1.0); TOTAL PROTEIN 7.6 GM/DL (6.4-8.2)
[2017-11-10 18:01] LABS: ALKALINE PHOSPHATASE 127 U/L (45-117)
[2017-11-10 18:05] LABS: BILIRUBIN, URINE NEG (NEG); GLUCOSE,URINE NEG (NEG); KETONE, URINE NEG (NEG); NITRITE,URINE NEG (NEG); URINE LEUKOCYTE ESTERASE NEG (NEG)
[2017-11-10 18:09] LABS: BLOOD, URINE TRACE (NEG)
[2017-11-10 18:12] LABS: RBC, URINE 0-3 /hpf (0-3); URINE COLOR YELLOW (YELLW/STRAW); WBC, URINE 0-2 /hpf (0-5)
[2017-11-10] MEDS ORDERED: CEFEPIME INJ 2,000 MG in SODIUM CHLORIDE 0.9% INJ 100 ML IV ONE (18:15)
[2017-11-10] MEDS ORDERED: POTASSIUM CHLORIDE 20 MEQ CONTROLLED RELEASE TAB PO ONE (18:15)
[2017-11-10 18:39] VITALS: BP 138/56; PULSE 88; RESP 16; TEMP 100.1; O2SAT 98
[2017-11-10] MEDS ORDERED: BISACODYL 10 MG SUPP RECTAL PRN (18:45)
[2017-11-10] MEDS ORDERED: LACTULOSE SYRUP 20 GM/30 ML CUP PO PRN (18:45)
[2017-11-10] MEDS ORDERED: ACETAMINOPHEN 325 MG TAB PO ONE (18:45)
[2017-11-10] MEDS ORDERED: MAGNESIUM HYDROXIDE SUSP 30 ML CUP PO PRN (18:45)
[2017-11-10] MEDS ORDERED: NALOXONE HCL 0.4 MG/ML AMP IV PUSH PRN (18:45)
[2017-11-10] MEDS ORDERED: traMADol HCL 50 MG TAB PO PRN (18:45)
[2017-11-10] MEDS ORDERED: OSELTAMIVIR PHOSPHATE 75 MG CAP PO ONE (18:45)
[2017-11-10] MEDS ORDERED: ACETAMINOPHEN 325 MG TAB PO PRN (18:45)
[2017-11-10] MEDS ORDERED: ONDANSETRON HCL 4 MG/2 ML VIAL IVP PRN (18:45)
[2017-11-10] MEDS ORDERED: SENNOSIDES 8.6 MG TAB PO PRN (18:45)
[2017-11-10] MEDS ORDERED: SODIUM CHLORIDE 0.9% FLUSH 10 ML FLUSH IV FLUSH PRN (18:45)
--- NOTE | 2017-11-10 19:08 | HHI.HP ---
HPI Service [facility] Primary Care Physician Dusty Richard M.D. Admission Diagnosis fever, chemotherapy, influenza a Diagnoses: Chief Complaint: Fever Travel History International Travel<30 Days: No Contact w/Intl Traveler <30 Da: No Traveled to Known Affected Are: No History of Present Illness The patient is a very pleasant 61-year-old female with past medical history of ovarian cancer, hypothyroidism. The patient reports she had fever today she called the television parts tester oncology doctor who advised her to come to the emergency room for further evaluation. Patient has history of ovarian cancer and because of the chemotherapy she has been advised that a temperature 100.5 she should go to the emergency room and hence she came here for further eval. Temperature in triage was 99.5.The patient reports having runny nose, nonproductive cough or 2 days, getting worse. She also had fever today 102.5 at home. No chest pain or shortness of breath. She is saturating well on room air. Denies wheezing. No nausea, vomiting, diarrhea or constipation. Denies any urinary complaints. Review of Systems Except as stated in HPI: all other systems reviewed are Neg Past Family Social History Past Medical History Ovarian cancer, hypothyroidism Past Surgical History Cholecystectomy Tubal ligation Bilateral oophorectomy, salpingectomy, omentum removal Reported Medications Reported Meds & Active Scripts Active Reported Cytomel (Liothyronine Sodium) 5 Mcg Tablet 1 Tab PO TID Acyclovir 400 Mg Tab 400 Mg PO BID Levothyroxine (Levothyroxine Sodium) 100 Mcg Tab 100 Mcg PO DAILY Allergies: Coded Allergies: acetaminophen (Verified Allergy, Intermediate, Itching, 11/10/17) hydrocodone (Verified Allergy, Intermediate, Itching, 11/10/17) raloxifene (Verified Allergy, Intermediate, Edema, 11/10/17) SEVERE LOWER LEG ANKLE SWELLING Sulfa (Sulfonamide Antibiotics) (Verified Allergy, Unknown, Hives, ) BLOTCHING ITCHING Family History Denies history of cancers in the family. Heart problems runs in the family. Social History Quit smoking more than 20 years ago. Denies alcohol use or illicit drug use. Physical Exam Vital Signs Vital Signs Date Time Temp Pulse Resp B/P (MAP) Pulse Ox O2 Delivery O2 Flow Rate FiO2 11/10/17 18:39 100.1 88 16 138/56 (83) 98 Nasal Cannula 2.00 11/10/17 17:46 97 Nasal Cannula 2.00 11/10/17 17:38 Nasal Cannula 2.00 11/10/17 17:01 99.9 110 16 148/80 (102) 96 Physical Exam GENERAL: This is a well-nourished, well-developed patient, in no apparent distress. SKIN: No rashes, ecchymoses or lesions. Cool and dry. HEAD: Atraumatic. Normocephalic. No temporal or scalp tenderness. EYES: Pupils equal round and reactive. Extraocular motions intact. No scleral icterus. No injection or drainage. ENT: Nose without bleeding, purulent drainage or septal hematoma. Throat without erythema, tonsillar hypertrophy or exudate. Uvula midline. Airway patent. NECK: Trachea midline. No JVD or lymphadenopathy. Supple, nontender, no meningeal signs. CARDIOVASCULAR: Regular rate and rhythm without murmurs, gallops, or rubs. RESPIRATORY: Clear to auscultation. Breath sounds equal bilaterally. No wheezes , rales, or rhonchi. GASTROINTESTINAL: Abdomen soft, non-tender, nondistended. No hepato-splenomegaly , or palpable masses. No guarding. MUSCULOSKELETAL: Extremities without clubbing, cyanosis, or edema. No joint tenderness, effusion, or edema noted. No calf tenderness. Negative Homans sign bilaterally. NEUROLOGICAL: Awake and alert. Cranial nerves II through XII intact. Motor and sensory grossly within normal limits. Five out of 5 muscle strength in all muscle groups. Normal speech. Laboratory Laboratory Tests Test 11/10/17 17:20 11/10/17 17:25 White Blood Count 9.9 Red Blood Count 3.45 Hemoglobin 10.6 Hematocrit 32.5 Mean Corpuscular Volume 94.4 Mean Corpuscular Hemoglobin 30.9 Mean Corpuscular Hemoglobin Concent 32.7 Red Cell Distribution Width 14.8 Platelet Count 107 Mean Platelet Volume 7.9 Neutrophils (%) (Auto) 79.6 Lymphocytes (%) (Auto) 11.0 Monocytes (%) (Auto) 9.0 Eosinophils (%) (Auto) 0.2 Basophils (%) (Auto) 0.2 Neutrophils # (Auto) 7.9 Lymphocytes # (Auto) 1.1 Monocytes # (Auto) 0.9 Eosinophils # (Auto) 0.0 Basophils # (Auto) 0.0 CBC Comment DIFF FINAL Differential Comment Blood Urea Nitrogen 9 Creatinine 0.67 Random Glucose 97 Total Protein 7.6 Albumin 3.3 Calcium Level 8.4 Alkaline Phosphatase 127 Aspartate Amino Transf (AST/SGOT) 23 Alanine Aminotransferase (ALT/SGPT) 25 Total Bilirubin 0.4 Sodium Level 135 Potassium Level 3.3 Chloride Level 99 Carbon Dioxide Level 27.4 Anion Gap 9 Estimat Glomerular Filtration Rate 90 Lactic Acid Level 1.0 Urine Collection Type CATH Urine Color YELLOW Urine Turbidity CLEAR Urine pH 6.0 Urine Specific [place]er 1.010 Urine Protein NEG Urine Glucose (UA) NEG Urine Ketones NEG Urine Occult Blood TRACE Urine Nitrite NEG Urine Bilirubin NEG Urine Leukocyte Esterase NEG Urine RBC 0-3 Urine WBC 0-2 Microscopic Urinalysis Comment CULT NOT INDICATED Date/Time Source Procedure Growth Status 11/10/17 17:25 Blood Peripheral Aerobic Blood Culture Pending Received 11/10/17 17:25 Blood Peripheral Anaerobic Blood Culture Pending Received 11/10/17 18:08 Nasal Aspirate Influenza Types A,B Antigen (TARI) - Final Positive For Flu A Antigen Complete Result Diagram: 11/10/17 1720 11/10/17 1720 Imaging Last Impressions Chest X-Ray 11/10/17 1702 Signed Impressions: Service Date/Time: Friday, November 10, 2017 17:11 - CONCLUSION: No acute cardiopulmonary disease. KMD Mikayla Frederick VTE Risk Assessment Caprini VTE Risk Assessment: Mod/High Risk (score >= 2) Caprini Risk Assessment Model Point Value = 1 Point Value = 2 Point Value = 3 Point Value = 5 Age 41-60 Minor surgery BMI > 25 kg/m2 Swollen legs Varicose veins or History of unexplained or recurrent spontaneous Oral contraceptives or hormone replacement Sepsis (< 1 month) Serious lung disease, including pneumonia (< 1 month) Abnormal pulmonary function Acute myocardial infarction Congestive heart failure (< 1 month) History of inflammatory bowel disease Medical patient at bed rest Age 61-74 Arthroscopic surgery Major open surgery (> 45 min) Laparoscopic surgery (> 45 min) Malignancy Confined to bed (> 72 hours) Immobilizing plaster cast Central venous access Age >= 75 History of VTE Family history of VTE Factor V Leiden Prothrombin [id number] Lupus anticoagulant Anticardiolipin antibodies Elevated serum homocysteine Heparin-induced thrombocytopenia Other congenital or acquired thrombophilia Stroke (< 1 month) Elective arthroplasty Hip, pelvis, or leg fracture Acute spinal cord injury (< 1 month) Prophylaxis Regimen Total Risk Factor Score Risk Level Prophylaxis Regimen 0-1 Low Early ambulation 2 Moderate Order ONE of the following: *Sequential Compression Device (SCD) *Heparin 5000 units SQ BID 3-4 Higher Order ONE of the following medications: *Heparin 5000 units SQ TID *Enoxaparin/Lovenox 40 mg SQ daily (WT < 150 kg, CrCl > 30 mL/min) *Enoxaparin/Lovenox 30 mg SQ daily (WT < 150 kg, CrCl > 10-29 mL/min) *Enoxaparin/Lovenox 30 mg SQ BID (WT < 150 kg, CrCl > 30 mL/min) AND/OR *Sequential Compression Device (SCD) 5 or more Highest Order ONE of the following medications: *Heparin 5000 units SQ TID (Preferred with Epidurals) *Enoxaparin/Lovenox 40 mg SQ daily (WT < 150 kg, CrCl > 30 mL/min) *Enoxaparin/Lovenox 30 mg SQ daily (WT < 150 kg, CrCl > 10-29 mL/min) *Enoxaparin/Lovenox 30 mg SQ BID (WT < 150 kg, CrCl > 30 mL/min) AND *Sequential Compression Device (SCD) Assessment and Plan Assessment and Plan Fever. History of chemotherapy. Influenza A Hypokalemia. Replaced, monitor and replace as needed. Hypothyroidism. Resume home medications Patient's white blood cell count normal, and she is not neutropenic. Chest x-rays reviewed and negative. UA normal. Patient was given IV fluid bolus [address] Allen who is covering for patient's oncologist Dr. Matta will follow . Patient received cefepime IV for oncology recommendation . Patient however with influenza test positive for influenza a. Started on Tamiflu. Monitor vital signs. Oxygen supplement if need keep oxygen saturation more than 94% DVT prophylaxis SCD/teds/Lovenox Discussed Condition With Patient, family at bedside, ED physician Lexy Polo MD Nov 10, 2017 19:08
[2017-11-10 19:40] VITALS: TEMP 98.7
[2017-11-10 20:00] VITALS: BP_SYST 125; BP_SYST 132; BP_DIAS 57; BP_DIAS 69; PULSE 87; PULSE 98; RESP 18; RESP 20; TEMP 100.2; TEMP 97.7; O2SAT 92; O2SAT 96
[2017-11-10] MEDS: DOCUSATE SODIUM 50 MG/SENNA 8.6 MG TAB PO SCH (20:15)
[2017-11-10] MEDS: SODIUM CHLORIDE 0.9% FLUSH 10 ML FLUSH IV FLUSH SCH (20:15)
[2017-11-10] MEDS: SODIUM CHLOR 0.9% 1000 ML INJ 1,000 ML IV SCH (20:34)
[2017-11-11] VITALS: BP 125/52; PULSE 98; RESP 18; TEMP 100.4; O2SAT 92
[2017-11-11] MEDS: SODIUM CHLOR 0.9% 1000 ML INJ 1,000 ML IV SCH (05:02)
[2017-11-11] MEDS ORDERED: LEVOTHYROXINE SODIUM 100 MCG TAB PO SCH (06:00)
[2017-11-11 08:00] VITALS: BP 141/81; PULSE 84; RESP 14; TEMP 98.6; O2SAT 93
[2017-11-11 08:09] LABS: AUTOMATED NEUTROPHIL # 4.8 TH/MM3 (1.8-7.7); BASOPHIL % 0.2 % (0.0-2.0); EOSINOPHIL % 0.7 % (0.0-4.0); HEMATOCRIT 28.8 % (35.0-46.0); HEMOGLOBIN 9.3 GM/DL (11.6-15.3); LYMPH % 19.1 % (9.0-44.0); LYMPHOCYTE # 1.3 TH/MM3 (1.0-4.8); MEAN CELL VOLUME 94.3 FL (80.0-100.0); MEAN CORPUSCULAR HEMOGLOBIN 30.3 PG (27.0-34.0); MEAN CORPUSCULAR HGB CONC 32.1 % (32.0-36.0); MEAN PLATELET VOLUME 8.4 FL (7.0-11.0); MONO % 10.9 % (0.0-8.0); MONOCYTE # 0.8 TH/MM3 (0-0.9); NEUT % 69.1 % (16.0-70.0); PLATELET COUNT 89 TH/MM3 (150-450); RED BLOOD COUNT 3.06 MIL/MM3 (4.00-5.30); WHITE BLOOD COUNT 6.9 TH/MM3 (4.0-11.0)
[2017-11-11 08:29] LABS: BICARBONATE 28.5 MEQ/L (21.0-32.0); CALCIUM 7.6 MG/DL (8.5-10.1)
[2017-11-11 08:38] LABS: CREATININE 0.51 MG/DL (0.50-1.00)
[2017-11-11] MEDS: SODIUM CHLORIDE 0.9% FLUSH 10 ML FLUSH IV FLUSH SCH (09:00)
[2017-11-11] MEDS ORDERED: OSELTAMIVIR PHOSPHATE 75 MG CAP PO SCH (09:00)
[2017-11-11] MEDS ORDERED: LIOTHYRONINE SODIUM 5 MCG TAB PO SCH (09:00)
[2017-11-11] MEDS: DOCUSATE SODIUM 50 MG/SENNA 8.6 MG TAB PO SCH (09:01)
--- NOTE | 2017-11-11 09:04 | HHI.PR ---
Subjective Remarks In bed feels much better. No fever or chills. No n/v/d/c. Denies chest ain , no more cough. No runny nose. Wants to go home. Objective Vitals Vital Signs Date Time Temp Pulse Resp B/P (MAP) Pulse Ox O2 Delivery O2 Flow Rate FiO2 11/11/17 00:00 100.4 98 18 125/52 (76) 92 11/10/17 22:00 21 11/10/17 20:00 97.7 87 20 132/69 (90) 96 11/10/17 19:50 11/10/17 19:40 98.7 11/10/17 18:39 98 Nasal Cannula 2.00 11/10/17 18:39 100.1 88 16 138/56 (83) 98 Nasal Cannula 2.00 11/10/17 17:46 97 Nasal Cannula 2.00 11/10/17 17:38 Nasal Cannula 2.00 11/10/17 17:01 99.9 110 16 148/80 (102) 96 I/O 11/10/17 11/10/17 11/10/17 11/11/17 11/11/17 11/11/17 07:00 15:00 23:00 07:00 15:00 23:00 Intake Total 2099 ml 240 ml Balance 2099 ml 240 ml Intake Oral 240 ml IV Total 2099 ml # Voids 2 # Bowel Movements 1 Result Diagram: 11/11/17 0659 11/11/17 0659 Imaging Last Impressions Chest X-Ray 11/10/17 1702 Signed Impressions: Service Date/Time: Friday, November 10, 2017 17:11 - CONCLUSION: No acute cardiopulmonary disease. Matthew uRiz MD Objective Remarks GENERAL: This is a well-nourished, well-developed patient, in no apparent distress. CARDIOVASCULAR: Regular rate and rhythm without murmurs, gallops, or rubs. RESPIRATORY: Clear to auscultation. Breath sounds equal bilaterally. No wheezes , rales, or rhonchi. GASTROINTESTINAL: Abdomen soft, non-tender, nondistended. No hepato-splenomegaly , or palpable masses. No guarding. MUSCULOSKELETAL: Extremities without clubbing, cyanosis, or edema. No joint tenderness, effusion, or edema noted. No calf tenderness. Negative Homans sign bilaterally. NEUROLOGICAL: Awake and alert. Cranial nerves II through XII intact. Motor and sensory grossly within normal limits. Five out of 5 muscle strength in all muscle groups. Normal speech. A/P Assessment and Plan Fever. History of chemotherapy. Influenza A Hypokalemia. Replaced, monitor and replace as needed. Hypothyroidism. Resume home medications Patient's white blood cell count normal, and she is not neutropenic. Chest x-rays reviewed and negative. UA normal. Patient was given IV fluid bolus [address] Allen who is covering for patient's oncologist Dr. Matta will follow . Patient received cefepime IV for oncology recommendation . Patient however with influenza test positive for influenza a. Started on Tamiflu. Monitor vital signs. Oxygen supplement if need keep oxygen saturation more than 94% DVT prophylaxis SCD/teds/Lovenox Discussed Condition With Patient, family at bedside, DC plan: Poss DC later today, she improved Discharge Planning DC home in stable condition to follow up as OP with PC and consultants Diet Healthy Heart Diet Activity Ad cee as tolerated Medications per med reconciliations Lexy Polo MD Nov 11, 2017 09:04
[2017-11-11] MEDS ORDERED: OSEL75 PO (09:06)
--- NOTE | 2017-11-11 09:06 | HHI.DCPOC ---
Discharge Care Plan Goals to Promote Your Health * To prevent worsening of your condition and complications * To maintain your health at the optimal level Directions to Meet Your Goals Take your medications as prescribed Follow your dietary instruction Follow activity as directed Keep your appointments as scheduled Take your immunizations and boosters as scheduled If your symptoms worsen call your PCP, if no PCP go to Urgent Care Center or Emergency Room Smoking is Dangerous to Your Health. Avoid second hand smoke Call the 24-hour hour crisis hotline for domestic abuse at Lexy Polo MD Nov 11, 2017 09:06
== END 2017-11-11 11:58 | disposition home or self-care (01) ==
LOC: PHED 16:35 → PHEDA 18:41 → PH3A 19:51
PROVIDERS: ADMIT Hospitalist; ATTEND Hospitalist
DX: J09.X2 Influenza due to identified novel influenza A virus with other respiratory manifestations (principal); E87.6 Hypokalemia; E03.9 Hypothyroidism, unspecified; C56.1 Malignant neoplasm of right ovary; C56.2 Malignant neoplasm of left ovary; Z92.21 Personal history of antineoplastic chemotherapy
CPT/HCPCS: 71010; 80048; 80053; 81001; 83605; 85025; 87040; 87804; 96361; 96365; 96376; 97161; 99285; G0378; G8987; G8988; J0692; J7030

== ENCOUNTER 2017-12-28 08:19 | Day surgery (SDC) | payer MEDICARE, BC ==
[~2017-12-28] VITALS: Ht 188 cm; Wt 103.2 kg
[~2017-12-28 08:19] MED LIST changes: +OSEL75 PO; -TRAM50 PO
[2017-12-28 08:33] VITALS: BP 141/89; PULSE 81; RESP 20; TEMP 97.8; O2SAT 95
[2017-12-28] MEDS ORDERED: ceFAZolin 2 GM PREMIX 50 ML - implanted port removal IV SCH (09:00)
[2017-12-28] MEDS ORDERED: SODIUM CHLORIDE 0.9% 1000 ML IV SCH (09:00)
[2017-12-28 09:17] LABS: AUTOMATED NEUTROPHIL # 2.6 TH/MM3 (1.8-7.7); BASOPHIL % 0.5 % (0.0-2.0); EOSINOPHIL # 0.1 TH/MM3 (0-0.4); EOSINOPHIL % 2.7 % (0.0-4.0); HEMATOCRIT 33.6 % (35.0-46.0); HEMOGLOBIN 11.7 GM/DL (11.6-15.3); LYMPH % 31.4 % (9.0-44.0); LYMPHOCYTE # 1.5 TH/MM3 (1.0-4.8); MEAN CELL VOLUME 98.3 FL (80.0-100.0); MEAN CORPUSCULAR HEMOGLOBIN 34.3 PG (27.0-34.0); MEAN CORPUSCULAR HGB CONC 34.9 % (32.0-36.0); MEAN PLATELET VOLUME 7.9 FL (7.0-11.0); MONO % 10.9 % (0.0-8.0); MONOCYTE # 0.5 TH/MM3 (0-0.9); NEUT % 54.5 % (16.0-70.0); PLATELET COUNT 161 TH/MM3 (150-450); RED BLOOD COUNT 3.42 MIL/MM3 (4.00-5.30); RED CELL DISTRIBUTION WIDTH 15.3 % (11.6-17.2); WHITE BLOOD COUNT 4.7 TH/MM3 (4.0-11.0)
[2017-12-28 09:25] LABS: PROTHROMBIN TIME - PATIENT 10.4 SEC (9.8-11.6)
[2017-12-28] MEDS ORDERED: SODIUM BICARBONATE 8.4% INJ 50 ML ONE (09:50)
--- NOTE | 2017-12-28 10:14 | PD.RAD ---
Post Procedure Progress Note Pre Procedure Diagnosis: (1) Ovarian cancer Post Procedure Diagnosis: (1) Ovarian cancer Procedure Date: Dec 28, 2017 Supervising Radiologist: Stephan Longoria Estimated blood loss: 2cc Anesthesia: Local Plan of Activity Patient to Unit: ROPU Patient Condition: Good Additional Comments: Port removed from the right chest without difficulty. Full dictated report to follow See PACS Report for procedural detail/treatment Stephan Longoria MD Dec 28, 2017 10:14
[2017-12-28 10:20] VITALS: BP 155/93; PULSE 52; RESP 18; TEMP 97.8; O2SAT 95
[2017-12-28 10:45] VITALS: BP 152/87; PULSE 52; RESP 20; O2SAT 96
--- NOTE | 2017-12-28 10:56 | RADRPT ---
EXAM DATE/TIME: 12/28/2017 00:00 [facility] COMPARISON: [id number] PLCMT, POWERPORT, W US, RIGHT, May 11, 2017, 7:46. INDICATIONS : Patient presents with a history of ovarian cancer in need of port removal that is no longer needed. MEDICAL HISTORY : Hx of ovarian cancer w/chemo Hypothyroid SURGICAL HISTORY : N/A ENCOUNTER: Subsequent ACUITY: 1 month PAIN SCORE: 0/10 LOCATION: N/A Prophylactic antibiotics were administered with appropriate pre-procedure timing. Vancomycin within 2 hrs of procedure, Ancef (or alternative) within 1 hr of procedure. TECH NOTE: Procedure completed without the use of sedation.PIPPA ISAAC MR#:[id number] Exam Dt/ Desc: December 28, 2017INFUS-A-PORT REMOVAL, W/O FLUORO, RIGHT PROCEDURE : 1. Removal of Lvreec-l-sawi. The risk, benefits and potential complications of Etigzl-m-Velm removal were discussed. Written conse nt was obtained. The patient was placed supine. The chest wall was prepped in sterile fashion. Full sterile techniqu e was used, including cap, mask, sterile gloves and gown, and a large sterile sheet. Hand hygiene an d 2% chlorhexidine and/or Betadine/alcohol prep was utilized per protocol for cutaneous antisepsis. The skin and subcutaneous tissues were infiltrated with local anesthetic solution. A small incision w as made, the subcutaneous pocket was opened. The port was dissected from the subcutaneous tissues and easily removed in one piece. The pocket incision was closed with subcuticular Vicryl suture. Steri -Strips were applied. CONCLUSION: Uncomplicated port removal as above. Stephan Longoria MD on December 28, 2017 at 10:54 Board Certified Radiologist. This report was verified electronically.
== END 2017-12-28 10:45 | disposition home or self-care (01) ==
LOC: HROP 08:19 → HRIP 08:23 → HROP 10:45
PROVIDERS: ATTEND Nurse Practitioner Family
DX: Z45.2 Encounter for adjustment and management of vascular access device (principal); C56.9 Malignant neoplasm of unspecified ovary; E03.9 Hypothyroidism, unspecified
CPT/HCPCS: 36590; 85025; 85610; 85730

== ENCOUNTER 2018-02-14 19:02 | Emergency (ER) | payer MEDICARE, BC ==
[~2018-02-14] VITALS: Ht 185.4 cm; Wt 106.0 kg
[~2018-02-14 19:02] MED LIST changes: -OSEL75 PO
[2018-02-14 19:27] VITALS: BP 135/78; PULSE 67; RESP 18; TEMP 98.2; O2SAT 96
[2018-02-14] MEDS ORDERED: ACETAMINOPHEN/CODEINE 300 MG/30 MG TAB PO ONE (20:15)
--- NOTE | 2018-02-14 20:20 | PD ---
HPI Chief Complaint: Fall Time Seen by Provider: 20:13 Travel History International Travel<30 days: No Contact w/Intl Traveler<30days: No Traveled to known affect area: No History of Present Illness HPI 62-year-old female presents emergency department for evaluation of her left elbow after falling about 6 PM tonight. Patient states that she was walking up steps, tripped, and fell, hyperextending her elbow, causing immediate pain. Patient states that the elbow has become significantly edematous, hard, and has had some tingling of the left ring and small finger. Denies actual numbness. Patient says her range of motion is limited because of the significant swelling. Says the pain is a "12/10", worse with movement. Patient does not take any blood thinners. She has a history of hypothyroidism and previous history of ovarian cancer. PFSH Past Medical History Anxiety: No Depression: No Cancer: Yes (uterine) Cardiovascular Problems: No Chemotherapy: Yes Diabetes: No Endocrine: Yes Genitourinary: No Hepatitis: No Hiatal Hernia: No Immune Disorder: No Musculoskeletal: No Neurologic: No Psychiatric: No Reproductive: Yes Respiratory: No Immunizations Current: No Radiation Therapy: No Thyroid Disease: Yes Past Surgical History Abdominal Surgery: Yes (gallbladder) AICD: No Body Medical Devices: port r side chest Cardiac Surgery: No Ear Surgery: No Endocrine Surgery: No Eye Surgery: Yes (RADIAL KERITOTOMY) Genitourinary Surgery: No Gynecologic Surgery: Yes (TUBES TIED hysterectomy, [id number]) Hysterectomy: Yes Joint Replacement: No Oral Surgery: No Pacemaker: No Thoracic Surgery: No Other Surgery: Yes Social History Alcohol Use: No Tobacco Use: No Substance Use: No Allergies-Medications (Allergen,Severity, Reaction): Coded Allergies: acetaminophen (Verified Allergy, Intermediate, Itching, 02/14/18) hydrocodone (Verified Allergy, Intermediate, Itching, 02/14/18) raloxifene (Verified Allergy, Intermediate, Edema, 02/14/18) SEVERE LOWER LEG ANKLE SWELLING Sulfa (Sulfonamide Antibiotics) (Verified Allergy, Unknown, Hives, 02/14/18) BLOTCHING ITCHING Reported Meds & Prescriptions Reported Meds & Active Scripts Active Reported Acyclovir 400 Mg Tab 400 Mg PO BID Levothyroxine (Levothyroxine Sodium) 100 Mcg Tab 135 Mcg PO DAILY Review of Systems Except as stated in HPI: all other systems reviewed are Neg Physical Exam Narrative GENERAL: Well-nourished, well-developed patient. SKIN: Focused skin assessment warm/dry. HEAD: Normocephalic. EYES: No scleral icterus. No injection or drainage. NECK: Supple, trachea midline. No JVD or lymphadenopathy. CARDIOVASCULAR: Regular rate and rhythm without murmurs, gallops, or rubs. RESPIRATORY: Breath sounds equal bilaterally. No accessory muscle use. GASTROINTESTINAL: Abdomen soft, non-tender, nondistended. MUSCULOSKELETAL: No cyanosis, or edema. Left elbow BACK: Nontender without obvious deformity. No CVA tenderness. Data Data Last Documented VS Vital Signs Date Time Temp Pulse Resp B/P (MAP) Pulse Ox O2 Delivery O2 Flow Rate FiO2 02/14/18 22:00 02/14/18 19:27 98.2 67 18 96 Orders Orders Elbow, Complete (4 Vws) (02/14/18 ) Acetamin-Codeine 300-30 Mg (Tylenol-Code (02/14/18 20:15) Ice/Cold Pack (02/14/18 20:13) Humerus (Min 2vws) (02/14/18 ) Support Splint (02/14/18 21:26) Ed Discharge Order (02/14/18 21:28) Fiberglass Splint Elbow Adult (02/14/18 ) Sling Cradle Arm (02/14/18 ) MDM Medical Decision Making Medical Screen Exam Complete: Yes Emergency Medical Condition: Yes Differential Diagnosis Left elbow fracture, compartment syndrome, contusion, hematoma Narrative Course 62-year-old female presents emergency department for evaluation of her left elbow after falling about 6 PM tonight. Patient states that she was walking up steps, tripped, and fell, hyperextending her elbow, causing immediate pain. Patient states that the elbow has become significantly edematous, hard, and has had some tingling of the left ring and small finger. Denies actual numbness. Patient says her range of motion is limited because of the significant swelling. Says the pain is a "12/10", worse with movement. Patient does not take any blood thinners. She has a history of hypothyroidism and previous history of ovarian cancer. Vital signs stable. Initial physical exam findings concerning for developing compartment syndrome. After secondary exam and application of ice and administration of Tylenol 3, it appears that the area has reduced edema and appears to be more supple. Patient also states that her tingling is also decreased. Last Impressions Humerus X-Ray 02/14/18 0000 Signed Impressions: Service Date/Time: February 20:29 - CONCLUSION: 1. Small avulsion fracture at the medial epicondyle. Dago Thacker MD Elbow X-Ray 02/14/18 0000 Signed Impressions: Service Date/Time: February 20:20 - CONCLUSION: 1. Probable small avulsion fracture at the medial upper condyle if patient is point tender at this location.. Dago Thacker MD Patient was placed in a posterior long-arm splint, splint. Advised to follow-up with an vaccine specialist for further treatment and evaluation. Follow-up with primary care physician as well. Diagnosis Primary Impression: Traumatic hematoma of left elbow Qualified Codes: S50.02XA - Contusion of left elbow, initial encounter Additional Impression: Avulsion fracture Referrals: Caleb Zimmerman MD, Antony Jr. MD Orthopedist Primary Care Physician Additional Instructions: Continue [id number] Tylenol Motrin for your pain. Consider follow-up with an vaccine specialist for further treatment and evaluation. Follow-up with primary care physician within 1-2 weeks. Continue to elevate the elbow to reduce swelling. Disposition: 01 DISCHARGE HOME Condition: Stable Melissa Msaon Feb 14, 2018 20:20
--- NOTE | 2018-02-14 21:06 | RADRPT ---
EXAM DATE/TIME: 02/14/2018 20:20 [facility] COMPARISON: No previous studies available for comparison. INDICATIONS : Fall this evening. Pain and swelling on anterior surface of humerus. MEDICAL HISTORY : ovarian cancer w/chemo, Hypothyroid SURGICAL HISTORY : Infus a port ENCOUNTER: Initial ACUITY: 1 day PAIN SCORE: 10/10 LOCATION: Left Elbow FINDINGS: There is a probable small avulsion fracture at the medial epicondyle. No other fracture identified. N ormal alignment. No significant joint effusion. CONCLUSION: 1. Probable small avulsion fracture at the medial upper condyle if patient is point tender at this lo cation.. Dago Thacker MD on February 14, 2018 at 21:03 Board Certified Radiologist. This report was verified electronically.
--- NOTE | 2018-02-14 21:07 | RADRPT ---
EXAM DATE/TIME: 02/14/2018 20:29 [facility] COMPARISON: No previous studies available for comparison. INDICATIONS : Fall this evening. Pain and swelling on anterior surface of humerus. MEDICAL HISTORY : Ovarian cancer. SURGICAL HISTORY : Infus a port ENCOUNTER: Initial ACUITY: 1 day PAIN SCORE: 10/10 LOCATION: Left Elbow FINDINGS: Two view examination of the left humerus demonstrates probable small avulsion fracture at the medial epicondyle. No other fractures identified. No dislocation. CONCLUSION: 1. Small avulsion fracture at the medial epicondyle. Dago Thacker MD on February 14, 2018 at 21:04 Board Certified Radiologist. This report was verified electronically.
--- NOTE | 2018-02-14 21:22 | PD ---
Physical Exam Date Seen by Provider: Feb 14, 2018 Narrative I was asked to see this patient by the PA. The patient presents with an acute injury to her left elbow. She is most concerned because of numbness and tingling of her left fourth and fifth fingers. The patient and the PA were concerned about possible compartment syndrome. On exam, she has a significant bruise and swelling to the medial aspect of the right elbow. However, there is no swelling in the forearm. There is no pain in the forearm. Movement distal to her elbow does not increase pain. I believe that this patient probably does have some compression of her ulnar nerve at the elbow because of the significant bruising. However, other than the numbness and tingling in the left fourth and fifth fingers, she does not have any evidence of compartment syndrome. Data Data Last Documented VS Vital Signs Date Time Temp Pulse Resp B/P (MAP) Pulse Ox O2 Delivery O2 Flow Rate FiO2 02/14/18 19:27 98.2 67 18 135/78 (97) 96 Orders Orders Elbow, Complete (4 Vws) (02/14/18 ) Acetamin-Codeine 300-30 Mg (Tylenol-Code (02/14/18 20:15) Ice/Cold Pack (02/14/18 20:13) Humerus (Min 2vws) (02/14/18 ) MDM Supervised Visit with TALYA: Yes Narrative Course Last Impressions Humerus X-Ray 02/14/18 0000 Signed Impressions: Service Date/Time: February 20:29 - CONCLUSION: 1. Small avulsion fracture at the medial epicondyle. Dago Thacker MD Elbow X-Ray 02/14/18 0000 Signed Impressions: Service Date/Time: February 20:20 - CONCLUSION: 1. Probable small avulsion fracture at the medial upper condyle if patient is point tender at this location.. Dago Thacker MD Diagnosis Primary Impression: Traumatic hematoma of left elbow Qualified Codes: S50.02XA - Contusion of left elbow, initial encounter Referrals: Orthopedist Primary Care Physician Additional Instruction: Continue [id number] Tylenol Motrin for your pain. Consider follow-up with an television specialist for further treatment and evaluation. Follow-up with primary care physician within 1-2 weeks. Continue to elevate the elbow to reduce swelling. Disposition: 01 DISCHARGE HOME Condition: Stable Carrie Santiago MD Feb 14, 2018 21:22
== END 2018-02-14 22:01 | disposition home or self-care (01) ==
LOC: PHEFT 19:02
DX: S50.02XA Contusion of left elbow, initial encounter (principal); E03.9 Hypothyroidism, unspecified; W01.0XXA Fall on same level from slipping, tripping and stumbling without subsequent striking against object, initial encounter; X50.1XXA Overexertion from prolonged static or awkward postures, initial encounter; Y93.01 Activity, walking, marching and hiking; Z88.2 Allergy status to sulfonamides; Z88.5 Allergy status to narcotic agent; Z85.43 Personal history of malignant neoplasm of ovary
CPT/HCPCS: 29105; 73060; 73080